=== PATIENT | male | born 1940 | race Caucasian/White ===

== ENCOUNTER 2021-03-10 14:30 | Emergency (ER) | payer MEDICARE, BC ==
[2021-03-10] MEDS ORDERED: ATORVASTATIN CA80 MG PO (14:52)
[2021-03-10] MEDS ORDERED: BACLOFEN10 M1 PO (14:52)
[2021-03-10] MEDS ORDERED: QUALITY CHOICE81 M2 PO (14:52)
[2021-03-10] MEDS ORDERED: CLOPIDOGREL PO (14:53)
[2021-03-10] MEDS ORDERED: LOTRIMIN ULTRA12 GM TOP (14:53)
[2021-03-10] MEDS ORDERED: ADVIL 200MG TA200 MG PO (14:54)
[2021-03-10] MEDS ORDERED: LOPRESSOR 225 MG/TAB PO (14:54)
[2021-03-10] MEDS ORDERED: FOLIC ACID1 MG PO (14:54)
[2021-03-10] MEDS ORDERED: FUROSEMIDE20 MG PO (14:54)
[2021-03-10] MEDS ORDERED: NEXIUM 40MG40 MG PO (14:55)
[2021-03-10] MEDS ORDERED: NAPROXEN SODIU220 MG PO (14:55)
[2021-03-10] MEDS ORDERED: SINGULAIR PO (14:55)
[2021-03-10] MEDS ORDERED: NITROSTAT0.4 M1 SL (14:55)
[2021-03-10] MEDS ORDERED: AFRIN PUMPMIST15 ML NS (14:56)
[2021-03-10] MEDS ORDERED: ALTACE 10MG TAB10 MG PO (14:57)
[2021-03-10 16:05] LABS: URINE APPEARANCE CLEAR; URINE BILIRUBIN NEGATIVE (NEGATIVE); URINE BLOOD TRACE (NEGATIVE); URINE COLOR YELLOW; URINE GLUCOSE NEGATIVE (NEGATIVE); URINE KETONE NEGATIVE (NEGATIVE); URINE LEUKOCYTE ESTERASE NEGATIVE (NEGATIVE); URINE MUCUS PRESENT (NOT PRESENT); URINE NITRATE NEGATIVE (NEGATIVE); URINE PROTEIN(semi-quant) TRACE mg/dL (NEGATIVE); URINE UROBILINOGEN NORMAL (NORMAL); URINE WBC 0-1 /hpf (0-3)
[2021-03-10 17:01] VITALS: BP 147/79
== END 2021-03-10 17:24 | disposition left against medical advice (07) ==
LOC: ED 14:30
PROVIDERS: Physician Assistant
DX: S09.90XA Unspecified injury of head, initial encounter (principal); R55 Syncope and collapse; I25.10 Atherosclerotic heart disease of native coronary artery without angina pectoris; I11.0 Hypertensive heart disease with heart failure; I50.9 Heart failure, unspecified; I25.2 Old myocardial infarction; G20 Parkinson's disease; Z95.0 Presence of cardiac pacemaker; Z87.891 Personal history of nicotine dependence; Z79.899 Other long term (current) drug therapy; Z79.02 Long term (current) use of antithrombotics/antiplatelets; Z79.82 Long term (current) use of aspirin; W19.XXXA Unspecified fall, initial encounter; W22.8XXA Striking against or struck by other objects, initial encounter; Y92.009 Unspecified place in unspecified non-institutional (private) residence as the place of occurrence of the external cause